=== PATIENT | male | born 1960 | race African-American/Black ===

== ENCOUNTER 2020-02-26 12:13 | Emergency (ER) | payer SELFPAY ==
[2020-02-26] MEDS ORDERED: Sodium Chloride 0.9% 2.5 ML Syringe FLUSH PRN (12:37)
[2020-02-26] MEDS ORDERED: Sodium Chloride 0.9% 10 ML Syringe FLUSH PRN (12:37)
[2020-02-26] MEDS ORDERED: Lactated Ringers 1,000 ML IV ONE (12:37)
[2020-02-26] MEDS ORDERED: Acetaminophen/oxyCODONE 325-5 MG Tab PO ONE (12:38)
--- NOTE | 2020-02-26 12:41 | EDM.PDOC ---
ED [facility] GENERAL MEDICAL PROBLEM - General Chief Complaint: General Stated Complaint: TOOTH ABSCESS/POSSIBLE INFECTION/DEHYDRATION Time Seen by Provider: 02/26/20 12:16 Source of Information: Reports: Patient History Limitations: Reports: No Limitations - History of Present Illness INITIAL COMMENTS - FREE TEXT/NARRATIVE: This is a very pleasant 59-year-old male with a past medical history of hypertension, hyperlipidemia, and diabetes mellitus presenting with facial pain and swelling. Patient reports a 7-day history of left-sided facial swelling. He states that he was seen by a dentist 4 days ago who prescribed oral antibiotics, but he is not sure what they are. He is still taking the antibiotics but states that the facial swelling has worsened, which prompted his visit to the emergency department. He complains of significant left-sided facial pain and some throat pain. He is able to tolerate fluids and food. Denies any fever, chills, nausea, vomiting, diarrhea, shortness of breath. ROS: A 10-point review of systems was negative, except as noted in the HPI (or in the ROS section of this note). Past medical history: Reviewed, no additional pertinent history. Surgical history: Reviewed in system, no additional pertinent history. Social history: Reviewed in system, no additional pertinent history. Family history: Reviewed in system, no additional pertinent history. PHYSICAL EXAM Vital signs reviewed. Nursing notes reviewed. Constitutional: Awake, alert, non-distressed. Head: Normocephalic, atraumatic. Eyes: EOMI, conjunctiva normal, no discharge, no scleral icterus. Ears, Nose, Throat: External ears and nose normal, moist oral mucosa. Significant left-sided facial swelling extending to the angle of the mandible. Unable to open mouth fully. Unable to visualize the uvula. Floor of the mouth is soft. Handling secretions without difficulty, speaking in full sentences, voice is normal. Neck: Supple, full range of motion. Cardiovascular: Tachycardic, 2+ radial pulse, capillary refill less than 2 seconds. Pulmonary: normal work of breathing, no accessory muscle use. Abdomen/GI: Soft, nontender, nondistended, no guarding or rigidity, no masses. Musculoskeletal: No deformities. Integumentary: Appropriate color for ethnicity, warm, dry, no pallor or jaundice, no rash. Neurologic: Alert, answering questions appropriately, normal speech, no facial droop, moving all extremities well. Psychiatric: Appropriate mood and affect, normal thought process. left face Pain Score (Numeric/FACES): 8 - Related Data Allergies Allergy/AdvReac Type Severity Reaction Status Date / Time No Known Allergies Allergy Verified 02/26/20 12:36 Home Meds: Home Meds Cyclobenzaprine [Flexeril] 10 mg PO DAILY 02/26/20 [History] Enalapril Maleate [Vasotec] 20 mg PO QID 02/26/20 [History] sitaGLIPtin Phos/Metformin HCl [Janumet Xr 50-1,000 mg Tablet] 1 each PO BID 02/26/20 [History] ED ROS GENERAL - Review of Systems Review Of Systems: See Below ED EXAM, GENERAL - Physical Exam Exam: See Below Course - Vital Signs Text/Narrative:: Patient hemodynamically stable, afebrile, well-appearing, looks nontoxic. Differential diagnosis includes but is not limited to: Miguel's angina, facial cellulitis, periapical abscess, deep space neck infection, RPA, peritonsillar abscess, Lemierre's syndrome, sepsis, bacteremia, and many others 1:17 PM: Labs show leukocytosis, mildly elevated lactate. Normal INR. Given p.o. Percocet, 1 L lactated Ringer's. Ordered vancomycin and Zosyn. Awaiting metabolic panel for CT scan of the neck. 1:56 PM: CBC shows leukocytosis with normal hemoglobin and platelet count. INR is normal. Lactate mildly elevated 2.1. Metabolic panel shows mild hyponatremia, mild hypokalemia normal renal function, glucose 280. Patient is going for CT scan of the neck and soft tissues. 3:28 PM: I called [facility] and advised we have been waiting for a CT read for 80 minutes. The person answering states that they are still trying to locate a neuroradiologist to read the study. 3:44 PM: Lactate improved to 1.4 after IV fluids. I spoke with the reading radiologist who noted a large 4.6 cm likely subperiosteal abscess at the posterior mandible extending into the left masseter muscle and cellulitis involving the floor of the mouth with mild airway swelling. I reevaluated the patient he is resting comfortably. He is handling secretions without difficulty and able to swallow. 5:04 PM: We are still trying to find an accepting facility. [facility] full, [facility] full. [facility] has no OMFS coverage and ENT declined to take the patient, states he need to be seen by OMFS. I am on hold with Britt Sylvester. 5:33 PM: We are able to secure acceptance at [facility]. Accepting hospitalist is Dr. Ja Dennison. We did consider ground ambulance transport but there is significant transport distance to the accepting facility (>6 hours)and there is some concern for bad weather. 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 We will plan to transfer him by flight crew. he patient is resting comfortably. 5:36 PM: Flight crew on the way. Ordered a second dose of Zosyn. Patient is resting comfortably. Will be transferred to [facility]. Last Recorded V/S: Last Vital Signs Temp 36.6 C 02/26/20 17:00 Pulse 92 02/26/20 17:00 Resp 16 02/26/20 17:00 BP 178/95 H 02/26/20 17:00 Pulse Ox 96 02/26/20 17:00 - Orders/Labs/Meds Orders: Active Orders 24 hr Category Date Time Status CULTURE BLOOD [BC] Stat Lab 02/26/20 12:38 Received CULTURE BLOOD [BC] Stat Lab 02/26/20 13:09 Received Blood Culture x2 Reflex Set [OM.PC] Stat Oth 02/26/20 12:37 Ordered Pulse Oximetry Continuous Monitoring [OM.PC] Routine Oth 02/26/20 12:37 Ordered Saline Lock Insert [OM.PC] Stat Oth 02/26/20 12:37 Ordered Labs: Laboratory Tests 02/26/20 02/26/20 02/26/20 Range/Units 12:38 12:38 12:38 WBC 15.32 H (4.0-11.0) K/uL RBC 4.52 (4.50-5.90) M/uL Hgb 14.7 (13.0-17.0) g/dL Hct 43.4 (38.0-50.0) % MCV 96.0 (80.0-98.0) fL MCH 32.5 H (27.0-32.0) pg MCHC 33.9 (31.0-37.0) g/dL RDW Std Deviation 47.6 (28.0-62.0) fl RDW Coeff of Christiano 14 (11.0-15.0) % Plt Count 301 (150-400) K/uL MPV 10.30 (7.40-12.00) fL Neut % (Auto) 75.0 (48.0-80.0) % Lymph % (Auto) 12.1 L (16.0-40.0) % Alcorn % (Auto) 12.3 (0.0-15.0) % Eos % (Auto) 0.4 (0.0-7.0) % Baso % (Auto) 0.2 (0.0-1.5) % Neut # (Auto) 11.5 H (1.4-5.7) K/uL Lymph # (Auto) 1.9 (0.6-2.4) K/uL Alcorn # (Auto) 1.9 H (0.0-0.8) K/uL Eos # (Auto) 0.1 (0.0-0.7) K/uL Baso # (Auto) 0.0 (0.0-0.1) K/uL Nucleated RBC % 0.0 /100WBC Nucleated RBCs # 0 K/uL INR 1.16 Lactate 2.1 H* (0.20-2.00) mmol/L Sodium (136-148) mmol/L Potassium (3.5-5.1) mmol/L Chloride (98-107) mmol/L Carbon Dioxide (21.0-32.0) mmol/L BUN (7.0-18.0) mg/dL Creatinine (0.8-1.3) mg/dL Est Cr Clr Drug Dosing mL/min Estimated GFR (MDRD) ml/min Glucose (74-106) mg/dL Calcium (8.5-10.1) mg/dL Total Bilirubin (0.2-1.0) mg/dL AST (15-37) IU/L ALT (14-63) IU/L Alkaline Phosphatase (46-116) U/L Total Protein (6.4-8.2) g/dL Albumin (3.4-5.0) g/dL Globulin (2.6-4.0) g/dL Albumin/Globulin Ratio (0.9-1.6) 02/26/20 02/26/20 02/26/20 Range/Units 12:38 14:47 17:21 WBC (4.0-11.0) K/uL RBC (4.50-5.90) M/uL Hgb (13.0-17.0) g/dL Hct (38.0-50.0) % MCV (80.0-98.0) fL MCH (27.0-32.0) pg MCHC (31.0-37.0) g/dL RDW Std Deviation (28.0-62.0) fl RDW Coeff of Christiano (11.0-15.0) % Plt Count (150-400) K/uL MPV (7.40-12.00) fL Neut % (Auto) (48.0-80.0) % Lymph % (Auto) (16.0-40.0) % Alcorn % (Auto) (0.0-15.0) % Eos % (Auto) (0.0-7.0) % Baso % (Auto) (0.0-1.5) % Neut # (Auto) (1.4-5.7) K/uL Lymph # (Auto) (0.6-2.4) K/uL Alcorn # (Auto) (0.0-0.8) K/uL Eos # (Auto) (0.0-0.7) K/uL Baso # (Auto) (0.0-0.1) K/uL Nucleated RBC % /100WBC Nucleated RBCs # K/uL INR Lactate 1.4 1.4 (0.20-2.00) mmol/L Sodium 133 L (136-148) mmol/L Potassium 3.4 L (3.5-5.1) mmol/L Chloride 95 L (98-107) mmol/L Carbon Dioxide 25.6 (21.0-32.0) mmol/L BUN 15 (7.0-18.0) mg/dL Creatinine 1.2 (0.8-1.3) mg/dL Est Cr Clr Drug Dosing 57.66 mL/min Estimated GFR (MDRD) > 60.0 ml/min Glucose 280 H (74-106) mg/dL Calcium 9.9 (8.5-10.1) mg/dL Total Bilirubin 0.5 (0.2-1.0) mg/dL AST 18 (15-37) IU/L ALT 20 (14-63) IU/L Alkaline Phosphatase 72 (46-116) U/L Total Protein 7.8 (6.4-8.2) g/dL Albumin 3.3 L (3.4-5.0) g/dL Globulin 4.5 H (2.6-4.0) g/dL Albumin/Globulin Ratio 0.7 L (0.9-1.6) Meds: Medications Discontinued Medications Generic Name Dose Route Start Last Admin Trade Name Freq PRN Reason Stop Dose Admin Lactated Ringer's 1,000 mls @ 999 mls/hr 02/26/20 12:37 02/26/20 12:52 Ringers, Lactated IV 02/26/20 13:37 999 mls/hr .BOLUS ONE Administration Piperacillin Sod/Tazobactam 100 mls @ 200 mls/hr 02/26/20 13:30 02/26/20 13:53 Sod 4.5 gm/ Sodium Chloride IV 02/26/20 13:59 200 mls/hr STAT ONE Administration Vancomycin HCl 1.5 gm/ Premix 300 mls @ 150 mls/hr 02/26/20 13:30 02/26/20 13:53 IV 02/26/20 15:29 150 mls/hr ONETIME ONE Administration Piperacillin Sod/Tazobactam 100 mls @ 100 mls/hr 02/26/20 17:56 Sod 4.5 gm/ Sodium Chloride IV 02/26/20 18:55 ONETIME ONE Iopamidol 75 ml 02/26/20 14:12 02/26/20 14:12 Isovue Multipack-370 (76%) IVPUSH 02/26/20 14:13 75 ml ONETIME ONE Administration Oxycodone HCl 10 mg 02/26/20 15:45 02/26/20 15:59 Oxycodone PO 02/26/20 15:46 10 mg ONETIME ONE Administration Oxycodone/Acetaminophen 2 tab 02/26/20 12:38 02/26/20 12:52 Percocet 325-5 Mg PO 02/26/20 12:39 2 tab ONETIME ONE Administration Sodium Chloride 10 ml 02/26/20 12:37 02/26/20 12:53 Saline Flush FLUSH 10 ml ASDIRECTED PRN Administration Keep Vein Open Sodium Chloride 2.5 ml 02/26/20 12:37 02/26/20 12:53 Saline Flush FLUSH 2.5 ml ASDIRECTED PRN Administration Keep Vein Open Departure - Departure Time of Disposition: 15:45 Disposition: DC/Tfer to [facility] Condition: Good Clinical Impression: Mandibular abscess, Facial cellulitis, Sepsis due to undetermined organism - Discharge Information *PRESCRIPTION DRUG MONITORING PROGRAM REVIEWED*: Not Applicable *COPY OF PRESCRIPTION DRUG MONITORING REPORT IN PATIENT RAMON: Not Applicable Referrals: Tg Herrera SYSTEM SUPPORT DEVELOPER [Primary Care Provider] - Forms: ED Department Discharge Sepsis Event Note (ED) - Evaluation Sepsis Screening Result: No Definite Risk - Focused Exam Vital Signs: Vital Signs Temp Pulse Resp BP Pulse Ox 02/26/20 17:00 36.6 C 92 16 178/95 H 96 02/26/20 16:30 87 17 172/94 H 94 L 02/26/20 16:15 89 17 173/93 H 95 02/26/20 16:00 86 17 166/92 H 94 L 02/26/20 15:45 86 17 141/96 H 95 02/26/20 15:30 88 17 156/90 H 96 02/26/20 15:15 84 18 157/88 H 95 02/26/20 15:00 86 16 155/93 H 95 02/26/20 14:30 86 17 145/81 H 95 02/26/20 14:15 89 17 140/78 95 02/26/20 13:30 36.8 C 92 17 157/86 H 97 02/26/20 13:15 93 17 144/80 H 97 02/26/20 13:00 90 16 125/80 98 02/26/20 12:45 97 17 119/83 96 02/26/20 12:31 36.2 C 105 H 16 159/78 H 96 - My Orders Last 24 Hours: My Active Orders 02/26/20 12:37 Blood Culture x2 Reflex Set [OM.PC] Stat Pulse Oximetry Continuous Monitoring [OM.PC] Routine Saline Lock Insert [OM.PC] Stat 02/26/20 12:38 CULTURE BLOOD [BC] Stat 02/26/20 13:09 CULTURE BLOOD [BC] Stat - Assessment/Plan Last 24 Hours: My Active Orders 02/26/20 12:37 Blood Culture x2 Reflex Set [OM.PC] Stat Pulse Oximetry Continuous Monitoring [OM.PC] Routine Saline Lock Insert [OM.PC] Stat 02/26/20 12:38 CULTURE BLOOD [BC] Stat 02/26/20 13:09 CULTURE BLOOD [BC] Stat
[2020-02-26] MEDS ORDERED: Vancomycin 1.5 GM in Dextrose 5% in Water 250 ML IV ONE ×2 (13:14)
[2020-02-26] MEDS ORDERED: Piperacillin/Tazobactam 4.5 GM in Sodium Chloride 0.9% 100 ML IV ONE ×3 (13:14→17:56)
[2020-02-26 13:36] LABS: BLOOD UREA NITROGEN,BUN 15 mg/dL (7.0-18.0); CARBON DIOXIDE,CO2 25.6 mmol/L (21.0-32.0); CHLORIDE,CL 95 mmol/L (98-107); GLUCOSE RANDOM 280 mg/dL (74-106); POTASSIUM,K 3.4 mmol/L (3.5-5.1); SODIUM,NA 133 mmol/L (136-148)
[2020-02-26] MEDS ORDERED: Iopamidol 755 MG/ML 500 ML Multipack Bottle IVPUSH ONE (14:12)
--- NOTE | 2020-02-26 15:44 | CT ---
INDICATION: Significant left-sided facial swelling with trismus. TECHNIQUE: CT of the neck with 75 cc Isovue 370 IV iodinated contrast agent. Coronal and sagittal reconstructions are included. COMPARISON: No prior studies available for comparison at this institution. FINDINGS: There is a 4.6 x 3.2 x 3.5 cm subperiosteal abscess along the left posterior mandible with significant soft tissue swelling in the left floor of mouth, left submandibular space with diffuse enlargement and edema of the left masseter muscle. There is adjacent enhancement and thickening of the left platysma muscle with cellulitis involving the left submandibular and left facial soft tissues. The abscess appears to extend into the anterior left masseter muscle. There is mild periapical lucency in the left mandibular 2nd molar tooth however there is no definite mandible cortex erosion. Incidentally noted is diffuse ossification along the left stylohyoid ligament which is typically asymptomatic but could be seen in the setting of [place] syndrome. The temporomandibular joints are unremarkable. Degenerative changes are noted in the cervical spine without significant spinal canal stenosis. The calvarium is intact. The paranasal sinuses are clear. The orbits are unremarkable. The mastoid air cells and middle ear cavities are unremarkable. There is mild narrowing of the oropharyngeal airway. The nasopharynx is unremarkable. The supraglottic, glottic and infraglottic larynx is unremarkable. The thyroid gland is unremarkable. The parotid glands and right submandibular gland are unremarkable. The left central gland demonstrates reactive edema. Multiple reactive cervical lymph nodes are noted. The origins of the great vessels are unremarkable. The lung apices are clear. Findings were called to Dr. Springer at 3:40 p.m. IMPRESSION: 1. There is a 4.6 x 3.2 x 3.5 cm subperiosteal abscess along the left posterior mandible with significant soft tissue swelling in the left floor of mouth, left submandibular space with diffuse enlargement and edema of the left masseter muscle. The abscess appears to extend into the anterior left masseter muscle. There is adjacent enhancement and thickening of the left platysma muscle with cellulitis involving the left submandibular and left facial soft tissues. 2. There is mild periapical lucency in the left mandibular 2nd molar tooth, possibly the source of infection, however there is no definite mandible cortex erosion. 3. Multiple reactive cervical lymph nodes. Please note that all CT scans at this facility use dose modulation, iterative reconstruction, and/or weight-based dosing when appropriate to reduce radiation dose to as low as reasonably achievable. Dictated by Robert Stover MD @ Feb 26 2020 3:31PM Signed by Dr. Robert Stover @ Feb 26 2020 3:43PM
[2020-02-26] MEDS ORDERED: oxyCODONE 5 MG Tab PO ONE (15:45)
== END 2020-02-26 16:35 ==
LOC: MW.ED 12:13
DX: A41.9 Sepsis, unspecified organism (principal); L03.211 Cellulitis of face; M27.2 Inflammatory conditions of jaws; I10 Essential (primary) hypertension; E11.9 Type 2 diabetes mellitus without complications; Z79.84 Long term (current) use of oral hypoglycemic drugs; Z79.899 Other long term (current) drug therapy
CPT/HCPCS: 36415; 70491; 80053; 83605; 85025; 85610; 87040; 96365; 96366; 96375; 99285; A9270; J2543; J3370; J7050; J7120; Q9967; 99284